=== PATIENT | male | born 1955 | race Caucasian/White ===

== ENCOUNTER 2024-12-05 12:22 | Outpatient (CLI) | payer MEDICARE, BC | END 2024-12-05 23:59 | disposition home or self-care (01) | LOC: RAD 12:22 | PROVIDERS: ATTEND Podiatrist Foot & Ankle Surgery | DX: M19.072 Primary osteoarthritis, left ankle and foot (principal); M25.472 Effusion, left ankle; M79.89 Other specified soft tissue disorders; L03.116 Cellulitis of left lower limb | CPT/HCPCS: 73700 ==